=== PATIENT | female | born 1960 | race Caucasian/White ===

== ENCOUNTER 2019-11-03 09:09 | Inpatient (IN) ==
--- NOTE | 2019-11-03 09:35 | EKG Report ---
Test Performed on : 11/03/2019 09:30:04 AM Test Reason : Anemia Blood Pressure : / mmHG Vent. Rate : 073 BPM Atrial Rate : 073 BPM P-R Int : 154 ms QRS Dur : 088 ms QT Int : 408 ms P-R-T Axes : 055 -15 031 degrees QTc Int : 449 ms Normal sinus rhythm. Anteroseptal infarct (cited on or before 18-OCT-2015) Abnormal ECG When compared with ECG of 17-AUG-2019 19:25, (Unconfirmed) No significant change was found Unconfirmed Result
--- NOTE | 2019-11-03 09:57 | PROVIDER DOCUMENTATION ---
HPI-General Adult - General Chief Complaint: Abnormal Lab[s] Stated Complaint: ABNORMAL LAB/LOW HEMOGLOBIN Time Seen by Provider: 11/03/19 09:15 Source: patient Allergies/Adverse Reactions: Patient Allergies Allergy/AdvReac Type Severity Reaction Status Date / Time No Known Allergies Allergy Verified 11/03/19 09:40 Home Medications: Home Medication List Medication Instructions Recorded Confirmed Last Taken Type Amlodipine [Norvasc] 10 mg PO DAILY 11/13/15 11/03/19 11/03/19 History Carvedilol 1 tab PO BID 12/28/17 11/03/19 11/03/19 History Clonidine HCl 1 tab PO BID 12/28/17 11/03/19 11/03/19 History Folic Acid 1 tab PO DAILY 12/28/17 11/03/19 11/03/19 History Furosemide 2 tab PO BID 12/28/17 11/03/19 11/03/19 History Sertraline HCl 1 tab PO DAILY 12/28/17 11/03/19 11/03/19 History Calcium Acetate [Phoslo] 667 mg PO TID CC #20 tab 08/17/19 11/03/19 11/03/19 Rx Famotidine 40 mg PO QAM 11/03/19 11/03/19 11/03/19 History Levothyroxine Sodium 25 mcg PO DAILY 11/03/19 11/03/19 11/03/19 06:00 History 25 mcg Levothyroxine Sodium 300 mcg PO DAILY 11/03/19 11/03/19 11/03/19 06:00 History 300 mcg Nifedipine E.r. [Procardia ER] 60 mg PO DAILY 11/03/19 11/03/19 11/03/19 History - History of Present Illness -Gen Adult Nature of Presenting Problems: Patient is a 59yo F who presents as a referral from Dr. Grady's office. Reports she was called yesterday and notified that her "blood counts" were low and to come to ED for evaluation. States she does daily peritoneal dialysis. Reports over the past few weeks, she has been feeling weak and with lack of energy. Denies blood/dark stools, fever/chills, CP, flu-like symptoms, n/v. Non- toxic in appearance. Location of Pain/Injury: reports: generalized Pain Radiation: reports: no radiation Quality of Pain: reports: none Severity: reports: mild Onset/Duration: reports: other (x "few weeks") Timing: reports: still present Context/Activities at Onset: reports: light activity Modifying Factors: improves with: nothing Associated Symptoms: reports: fatigue, weakness (generalized). denies: back/neck pain, cough, fever/chills, nausea, shortness of breath, vomiting Similar Symptoms Previously?: No Recently seen or treated by another doctor?: Yes (saw Dr. Grady's FLORAL DESIGN TEACHER this week) Review of Systems - Adult - REVIEW OF SYSTEMS - ADULT Constitutional: reports: other (generalized weakness). denies: chills, fever Eyes: reports: no symptoms reported Ears, Nose, Mouth & Throat: denies: ear pain, throat pain Cardiovascular: denies: chest pain, palpitations Respiratory: denies: cough, shortness of breath Gastrointestinal: denies: abdominal pain, vomiting Genitourinary: reports: no symptoms reported Musculoskeletal: reports: no symptoms reported Integumentary: reports: no symptoms reported Neurological: denies: dizziness/vertigo, loss of balance Psychiatric: reports: no symptoms reported Endocrine: reports: no symptoms reported Past History - Adult - PAST MEDICAL HISTORY-ADULT Review of Records: reports: Nursing Assessment Review, Medications Reviewed, Social history reviewed & non-contributory. Major Childhood Illnesses: reports: denies history Cardiovascular: reports: HTN Respiratory: reports: denies history Gastrointestinal: reports: denies history Obstetrical/Gynecological: reports: denies history Genitourinary: reports: kidney disease (CKD) Musculoskeletal: reports: denies history Neurological: reports: denies history Endocrine/Immune: reports: thyroid disorder (Hypo) Other Conditions: reports: denies history - PRIOR SURGERIES/PROCEDURES Surgical/Procedure History: reports: BTL, other (dialysis port placed) - PRIOR HOSPITALIZATIONS Prior Hospitalizations: reports: for other non-related - IMMUNIZATION STATUS Childhood Immunizations: See Nurse Assessment Flu Vaccine: See Nurse Assessment - FAMILY HISTORY Family History: reviewed, not pertinent - SOCIAL HISTORY Smoking: denies, non-smoker Physical Exam-General - PHYSICAL EXAM-ADULT Initial Vital Signs Reviewed: Yes - CONSTITUTIONAL General Appearance: alert, mild distress. negative: lethargic, slow to respond - EYES Eyes: PERRL/EOMI, pale conjunctivae - HEAD, EARS, NOSE, MOUTH & THROAT HENMT: normocephalic/atraumatic. negative: angioedema - NECK Neck: non-tender, full range of motion, supple, normal inspection - RESPIRATORY Respiratory: chest non-tender, lungs clear, normal breath sounds, no pleuratic chest pain, no respiratory distress, no accessory muscle use. negative: crackles, wheezing, retractions - CARDIOVASCULAR Cardiovascular: regular rate, rhythm, no gallop - GASTROINTESTINAL (ABDOMEN) Abdominal Exam: normal bowel sounds, soft - GENITOURINARY Female Genitalia/Pelvic Exam: deferred Rectal Exam: normal exam, normal rectal tone Hemoccult Exam: heme negative stool - MUSCULOSKELETAL Back Exam: normal inspection Extremity: normal range of motion, non-tender, normal gait, normal inspection - SKIN Integumentary: warm/dry, pallor - NEUROLOGIC Neurologic: grossly normal. negative: aphasia, EOM palsy - PSYCHIATRIC Psych/Mental Status: normal mood/affect, normal thought content, normal thought process, oriented x 3 Progress - PLAN OF CARE/RESULTS Progress/Plan/Lab Results: Vital Signs - 8 hr 11/03/19 09:11 Temperature 98.0 F Pulse Rate 78 Respiratory Rate 16 Blood Pressure 146/59 O2 Sat by Pulse Oximetry 97 Orders Category Date Time Status Nursing- Obtain EKG ONCE Care 11/03/19 09:16 Active Saline Loc NOW Care 11/03/19 09:16 Active CBC WITH ELECTRONIC DIFF [HEME] Stat Lab 11/03/19 09:16 Uncollected COMPREHENSIVE METABOLIC PANEL [CHEM] Stat Lab 11/03/19 09:16 Uncollected MAGNESIUM [CHEM] Stat Lab 11/03/19 09:16 Uncollected PHOSPHORUS [CHEM] Stat Lab 11/03/19 09:16 Uncollected EKG [EKG] Stat Ther 11/03/19 09:16 Draft 1000: Dr. Monroy at bedside. 1050: Hospitalist paged for admission. Lab results, imaging results, plan of care, and need for admission discussed with patient who agrees with and verbalizes understanding. Result Diagrams: 11/03/19 09:50 11/03/19 09:50 - EKG 1 Time of EKG reading by physician:: 09:33 EKG Read and Signed by:: Joshua Monroy Rate: 73 Rhythm: NSR Partridge: normal QRS: normal ID Interval: normal Prior EKG Comparison: unchanged from prior (08/17/19) - XRAY 1 XRAY: Bilateral XRAY Study: Chest Impression: See EMR Report ([facility] - [address], [address], [place] [address] [facility] - [address] , [place] [address] Department of Imaging Patient: JUAN CARLOS BRYSON EADM Date: 11/03/19MR#: [id number] : 1960DM Status: REG [facility]#: [id number] Age/Sex: 59/FRoom/Bed: Loc: ED Ordering Physician: Maria Victoria Sepulveda Family Physician: Bryson Wheat MD Reason for Procedure: Weakness; fatigue Signed EXAM: CHEST-PORTABLE HISTORY: Weakness; fatigue TECHNIQUE: Single view COMPARISON: 12/30/2017 FINDINGS: The lungs are well expanded. The heart is borderline mildly prominent. The vessels are not distended. There are no infiltrates. No effusion identified. IMPRESSION: Stable chest Electronically signed by Gopal Ray 11/03/2019 10:27 AM 11/03/19 1027 Interpreting Physician: Gopal Ray MD Dictated Date/Time: 11/03/19 1027 cc: Maria Victoria Sepulveda; Bryson Wheat MD) - CONSULTS/PCP/HOSPITALIST Notification #1 *Consult/PCP/Hospitalist*: Radha Alvarez Time Discussed: 10:53 Reason/Comments: Symptomatic anema; Hyperphosphatemia; ESRD on PD Consult Disposition: Will see in ED, Admit Departure - Departure Date of Disposition Decision: 11/03/19 Time of Disposition Decision: 10:50 DIAGNOSIS: ESRD on peritoneal dialysis, Symptomatic anemia, Hyperphosphatemia Disposition: ADMITTED INPATIENT 09 Certified Medical Emergency: Emergent Condition: Stable - Critical Care Note This patient required my direct & personal management of CC.: No Attestation - Physician/ NIKKI Attestation Patient care was provided by Advanced Practice Provider:: Yes Advanced Practice Provider:: Maria Victoria Sepulveda Advanced Practice Provider documentation review:: The Mid-level provider do cumentation, treatment plan and medical decision making was reviewed by the physician who agrees with all treatment and medical decision making by the MLP. The physician spent face to face time with patient:: Yes (Porfirio) Advanced Practice Provider documentation review:: Supervising physician onsite and consulted in the evaluation and care of this patient. The physician did have a face to face encounter with the patient.
--- NOTE | 2019-11-03 10:30 | Diag Imaging Result Doc PS360 ---
EXAM: CHEST-PORTABLE HISTORY: Weakness; fatigue TECHNIQUE: Single view COMPARISON: 12/30/2017 FINDINGS: The lungs are well expanded. The heart is borderline mildly prominent. The vessels are not distended. There are no infiltrates. No effusion identified. IMPRESSION: Stable chest Electronically signed by Gopal Ray 11/03/2019 10:27 AM
[2019-11-03 10:31] LABS: INR 1.09; PROTIME 14.2 Seconds (11.0-16.0)
[2019-11-03 10:41] LABS: ALB/GLOB RATIO 1.4; ALBUMIN 3.3 g/dL (3.5-5.0); CALCIUM 9.4 mg/dL (8.8-10.2); CREATININE 8.2 mg/dL (0.5-0.9); MAGNESIUM 1.9 mg/dL (1.5-2.7); PHOSPHORUS 5.9 mg/dL (2.7-4.5); POTASSIUM 4.3 mmol/L (3.5-5.1); TOTAL BILIRUBIN 0.31 mg/dL (0.20-1.00); TOTAL PROTEIN 5.6 g/dL (6.3-8.3)
[2019-11-03 10:47] LABS: BASO# 0.02 X1000 (0.0-0.2); BASO% 0.2 % (0.0-0.8); EOS# 0.22 X1000 (0.0-0.7); EOS% 2.2 % (0.0-10.0); HEMOGLOBIN 6.3 g/dL (12.0-16.0); IMM GRAN# 0.05 X1000 (0.0-0.04); IMM GRAN% 0.5 % (0.0-0.5); LYMPH# 1.29 X1000 (1.2-3.4); MCH 29.3 PG (27-31); MCV 97.7 FL (81-99); MONO# 0.74 X1000 (0.11-0.59); MONO% 7.5 % (1.7-9.3); MPV 10.9 FL (7.4-10.4); NEUT# 7.57 X1000 (1.4-6.5); NEUT% 76.6 % (42.2-75.2); PLT 200 X1000 (130-400); RBC 2.15 XMIL (4.2-5.4); RDW 13.8 % (11.5-14.5); WBC 9.89 X1000 (4.8-10.8)
[2019-11-03] MEDS ORDERED: NS 500 ML IV ONE (10:48)
[2019-11-03 10:57] LABS: PTT HEPARIN PROTOCOL 31.8 Seconds
[2019-11-03 11:33] LABS: IRON SATURATION 42 %; TIBC 168 ug/dL; TOTAL IRON 71 ug/dL (49-151); UNBOUND IRON 97 ug/dL (112-346)
[2019-11-03] MEDS ORDERED: ZOFRAN IV PRN (13:16)
[2019-11-03] MEDS ORDERED: TYLENOL PO PRN (13:16)
[2019-11-03] MEDS: PHOSLO PO SCH ×2 (14:15→17:40)
[2019-11-03] MEDS: SODIUM CHLORIDE 0.9% INJ SCH (14:15)
[2019-11-03] MEDS: PROTONIX IV SCH (14:15)
--- NOTE | 2019-11-03 14:26 | HISTORY AND PHYSICAL ---
PRIMARY CARE PROVIDER: Bryson Wheat. CABINET ABRASIVE SANDBLASTER: Dr. Grady. CHIEF COMPLAINT: Was told to come to the ED because of her low blood counts. HISTORY OF PRESENT ILLNESS: Ms. Irby is a 59-year-old female with end-stage renal disease on peritoneal dialysis with Dr. Grady, hypertension, anemia of chronic disease, and hypothyroidism. She reports getting a call to come to the ED secondary to low blood counts. She reports she feels good except when she is up walking around, she gets fatigued in her legs. She has had occasional palpitations but none over the last few days. Maybe some shortness of breath associated with walking a long distance. This has been ongoing per her report for a few weeks now. She denied any bright red blood or dark tarry stools. No coughing up or vomiting up of blood. No dizziness. No syncope. No fever. No chills. No sick contacts. She does report that she usually has a cough in the mornings, that is normal for her, where she is able to produce some phlegm but no more than her normal. No nausea, vomiting, diarrhea, or constipation. No chest pain. No shortness of breath except for walking with long distances. Workup in the ED revealed a hemoglobin and hematocrit of 6 and 21. A BUN of 62, a creatinine of 8.2. She will be admitted, typed and screened, transfused with 2 units of blood, and a GI consult per Dr. Grady's request. Her Hemoccult stool was negative. PAST MEDICAL HISTORY: Per HPI. PAST SURGICAL HISTORY: PD catheter placement in 2019, she had rods placed in a right arm, 2 sections. SOCIAL HISTORY: No tobacco, alcohol, or illicit drug use. Lives with family. 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 HOME MEDICATIONS: Being compiled. REVIEW OF SYSTEMS: Completely negative except for those mentioned in the HPI. PHYSICAL EXAMINATION: VITAL SIGNS: Temperature is 98.1 degrees, heart rate 81, respirations 20, blood pressure 178/61, O2 is 97% on room air. GENERAL: Ms. Irby is a pleasant, 59-year-old, female who is lying on the stretcher in no acute distress. HEENT: Atraumatic, normocephalic. PERRL. NECK: Supple. Trachea midline. CV: S1-S2 appreciated. RESPIRATORY: Lung sounds clear. No rales, rhonchi, or wheezes. No use of accessory muscles. ABDOMEN: Soft, nontender, nondistended. Positive bowel sounds. SKIN: Warm and dry. NEUROLOGIC: No focal deficits noted. DIAGNOSTIC DATA: Chest x-ray stable. EKG, normal sinus rhythm at 73 beats per minute. LABORATORY DATA: White count 9, hemoglobin and hematocrit are 6 and 21, platelet count is 200,000. Sodium 138, potassium 4.3, BUN 62, creatinine 8.2, blood glucose is 117, magnesium is 1.9, phosphorus is 5.9. ASSESSMENT AND PLAN: 1. Symptomatic anemia. We will rule out gastrointestinal bleed. Her Hemoccult stool was negative. She denies vomiting or coughing up any coffee-grounds emesis or bright red blood. We will consult gastroenterology, Dr. Smart. We will give her 2 doses of intravenous Protonix. She has been typed and screened, and will be given 2 units of blood, as well as do a full anemia workup. She does report getting fatigued in her legs when walking, as well as shortness of breath with long distances. 2. End-stage renal disease, on peritoneal dialysis. We will consult Dr. Grady for further orders. 3. Hypertension. 4. Hypothyroidism. 5. Further recommendation to follow physician evaluation, laboratory and diagnostic data. Dictated by HOUSTON Kennedy for Sharad Chawla MD cc: Sharad Chawla MD [facility]
--- NOTE | 2019-11-03 16:59 | HISTORY AND PHYSICAL ---
ADDENDUM: I have seen and examined Ms. Irby today. Ms. Irby is a 59-year-old female who has end-stage renal disease, on peritoneal dialysis, came to the emergency room after she was called by her shank scourer's office that her lab works are remarkably abnormal and that she needed to come to the emergency room. Upon presenting to the emergency room, she was found to have hemoglobin of 6.3. She has been admitted for further medical evaluation and treatment. Ms. Irby has a history of adult polycystic kidney disease. She said she had EGD and colonoscopy done last year by Dr. Marin. She also said lately she has been feeling dizzy and generalized fatigue. OBJECTIVE: Vital signs: Blood pressure is 173/52, pulse of 78, respiration is 16, temperature 98.1 degrees. General: Ms. Irby 59-year-old female she is in bed in no distress. Mucosa is slightly pale. Anicteric. Acyanotic. Neck: Supple. Chest: Good air entry bilateral. Cardiovascular: Regular rate and rhythm. There is a 2/6 murmur radiating to the neck. Abdomen: Soft. There is peritoneal dialysis catheter in place. No peritoneal reaction. Extremities: No pedal edema. DELIVERY AGENT: Patient is awake, alert, and oriented. LABORATORY DATA: Has been reviewed. Hemoglobin of 6.2. Iron studies unremarkable. ASSESSMENT: 1. Symptomatic anemia. 2. Anemia of chronic disease, most likely related to end-stage renal disease. The patient occult testing is negative. She says she was she had EGD and colonoscopy about a year now with Dr. Marin, so we will try and get reports from her GI doctor's office. 3. Endstage renal disease, on peritoneal dialysis. Nephrology has been consulted. 4. History of adult polycystic kidney disease. 5. Uncontrolled hypertension. The patient has been started back on her home medicines. Please refer to the details of the history and physical that has been dictated by the SENIOR FACILITIES MANAGER in the chart. cc: Sharad Chawla MD MTDD
--- NOTE | 2019-11-03 19:44 | NEPHROLOGY CONSULTATION ---
DATE: 11/03/2019 REASON FOR CONSULTATION: Assistance with medical management, ESRD, anemia. HISTORY OF PRESENT ILLNESS: Ms. Irby is a 59-year-old white female who is well known to us. 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 She has hypertension, hypothyroidism, etc. She has a baseline hemoglobin of 9 to 10 and on her routine outpatient laboratory data her hemoglobin was approximately 6.5. No nausea, vomiting, diarrhea, abdominal pain, dark stool, blood in her bowels, known bleeding, tender joints, falls, etc. No recent changes in her medication. Fluid balance has been better than average for her. She does have significant weakness and shortness of breath with activity. PAST MEDICAL HISTORY: As above. HOME MEDICATIONS: Include amlodipine, sertraline, furosemide, folate, clonidine, carvedilol, calcium acetate, nifedipine, levothyroxine, famotidine. ALLERGIES: None. SOCIAL HISTORY: She is and lives alone. No alcohol or tobacco. She works at [employer]. FAMILY HISTORY: Noncontributory. REVIEW OF SYSTEMS: Noncontributory. PHYSICAL EXAMINATION: Vital Signs: Blood pressure 173/52, heart rate 78, respirations 16, afebrile. Generally: She is a healthy woman lying in bed. No distress. Skin: Somewhat pale, but dry. No bruises. HEENT: Conjunctivae are pink. Pupils are equal. Oropharynx is clear. Normal tongue. Normal teeth. Neck: Supple. Trachea is midline. Neck vein distention is not present. Heart: PMI nondisplaced. Regular rate and rhythm. No murmurs, rubs, or gallops. Lungs: Have equal breath sounds. No crackles or wheezes. Abdomen: Soft, distended, nontender. Bowel sounds are present. No organomegaly, masses, bruits. Extremities: Trace edema. No clubbing or cyanosis. Neurologic: Nonfocal. IMPRESSION: Anemia. No obvious blood loss. Other cell lines are unaffected. We will transfuse 2 units packed red blood cells. Check stool for Hemoccult and consider Gastroenterology evaluation. Observe following transfusion. Continue home medications. Continue home dialysis prescription. She is currently dwelling. cc: Mati Grady MD
[2019-11-03] MEDS: CATAPRES PO SCH (20:01)
[2019-11-03] MEDS: COREG PO SCH (20:02)
[2019-11-04] MEDS: PROTONIX IV SCH (01:54)
[2019-11-04 06:18] LABS: BASO# 0.01 X1000 (0.0-0.2); BASO% 0.1 % (0.0-0.8); EOS# 0.17 X1000 (0.0-0.7); EOS% 2.3 % (0.0-10.0); HEMOGLOBIN 8.1 g/dL (12.0-16.0); IMM GRAN# 0.04 X1000 (0.0-0.04); IMM GRAN% 0.5 % (0.0-0.5); LYMPH# 1.22 X1000 (1.2-3.4); LYMPH% 16.2 % (20.5-51.1); MCH 29.1 PG (27-31); MCHC 31.2 g/dL (33-37); MCV 93.5 FL (81-99); MONO# 0.57 X1000 (0.11-0.59); MONO% 7.6 % (1.7-9.3); MPV 10.3 FL (7.4-10.4); NEUT# 5.51 X1000 (1.4-6.5); NEUT% 73.3 % (42.2-75.2); PLT 179 X1000 (130-400); RBC 2.78 XMIL (4.2-5.4); RDW 15.5 % (11.5-14.5); WBC 7.52 X1000 (4.8-10.8)
[2019-11-04 06:32] LABS: ALB/GLOB RATIO 1.6; ALBUMIN 3.1 g/dL (3.5-5.0); CALCIUM 9.2 mg/dL (8.8-10.2); CREATININE 8.7 mg/dL (0.5-0.9); MAGNESIUM 1.9 mg/dL (1.5-2.7); POTASSIUM 3.9 mmol/L (3.5-5.1); TOTAL BILIRUBIN 0.3 mg/dL (0.20-1.00)
[2019-11-04] MEDS: SYNTHROID PO SCH (06:34)
[2019-11-04] MEDS ORDERED: SYNTHROID PO SCH (07:00)
[2019-11-04] MEDS: PHOSLO PO SCH ×3 (07:59→16:42)
[2019-11-04] MEDS: ADALAT CC PO SCH (08:00)
[2019-11-04] MEDS: COREG PO SCH ×2 (08:01→21:28)
[2019-11-04] MEDS: CATAPRES PO SCH ×2 (08:01→21:28)
[2019-11-04] MEDS: NORVASC PO SCH (08:02)
[2019-11-04] MEDS: FOLIC ACID PO SCH (08:02)
[2019-11-04] MEDS: PEPCID PO SCH (08:03)
[2019-11-04] MEDS: ZOLOFT PO SCH (08:03)
[2019-11-04] MEDS ORDERED: COZAAR PO SCH (09:00)
[2019-11-04] MEDS ORDERED: RETACRIT (ESRD PATIENTS) SUBQ ONE (11:37)
--- NOTE | 2019-11-04 12:07 | NEPHROLOGY PROGRESS NOTE ---
DATE: 11/04/2019 SUBJECTIVE: She states she is doing well, and she has been up out of bed. She has only recently gotten back into the bed. Still no nausea vomiting, or abdominal pain. No melena or hematochezia etc. OBJECTIVE: Vital Signs: Blood pressure 182/64, heart rate 76, and afebrile. General: No acute distress. Skin: Warm and dry. Less pale. HEENT: Conjunctivae are pink. Neck: Neck veins are not distended. Heart: Regular. No gallops. Lungs: Equal. No crackles. Abdomen: Soft and nontender. Bowel sounds present. Extremities: Trace edema. No clubbing or cyanosis. IMPRESSION: 1. Anemia. Hemoglobin 8.1 following transfusion. The inpatient evaluation is in process. We will check her hemoglobin again in the morning. If stable, then I would advocate for discharge and further workup performed as an outpatient. She does receive Mircera which is a long-acting erythropoiesis stimulating agent, but I will give an extra dose of erythropoietin while she is here. 2. CKD 5D. We will continue her routine dialysis prescription. 3. Hypertension. Blood pressure is significantly elevated. I will increase her losartan to 100 mg daily. cc: Mati Grady MD
[2019-11-04 15:04] LABS: HEMATOCRIT 26.7 % (37.0-47.0); HEMOGLOBIN 8.4 g/dL (12.0-16.0)
--- NOTE | 2019-11-04 15:28 | PROGRESS NOTE ---
DATE: 11/04/2019 SUBJECTIVE: I have seen and examined Ms. Irby this morning. Ms. Irby refers to be doing well. She says she tolerated her dialysis well last night and that she has been up to the restroom and she did not have any more dizziness. Ms Irby is status post 2 PRBC transfusion yesterday. This morning, her hemoglobin is up to 8.1. Nephrology has already evaluated her and she refers that she was told to be monitored till tomorrow. OBJECTIVELY: Vital signs: Her current vitals, blood pressure of 182/64, pulse of 76, respiration is 14, temperature is 97.6 degrees. General: Ms. Irby is a 59-year-old female. She is in bed, no distress. HEENT: Mucosa is pink and moist. Anicteric. Acyanotic. Neck: Supple. Chest: Clear to auscultation. There were no crepitations, no rhonchi. Cardiovascular: Regular rate and rhythm. There is a 2/6 murmur radiating to the neck. Gastrointestinal: Abdomen is soft. Peritoneal dialysis catheter is in place. No peritoneal reaction. Extremities: No pedal edema. Central nervous system: Patient is awake, alert, oriented. There is no focal deficit. LABORATORY DATA: 1. Hemoglobin is up to 8.1. Chemistry is consistent with renal failure. 2. The patient's TSH is 0.10, which is remarkably low. ASSESSMENT: 1. Symptomatic anemia. Patient is status post 2 packed red blood cells transfusion. The patient is also pending Gastroenterology evaluation. Dr. Smart has been consulted. 2. Anemia of chronic disease, most likely related to end-stage renal disease. 3. End-stage renal disease on peritoneal dialysis. Nephrology is on board. 4. History of adult polycystic kidney disease. 5. Uncontrolled hypertension. We have made some changes to her current medications. Losartan has been increased to 100 daily today. 6. History of hypothyroidism with low TSH consistent of chemical hyperthyroidism, medication- induced. We are going to cut back on the levothyroxine dose. PLAN: In general, I think Ms. Irby is fairly stable. She has 2 units transfused. She does not feel any more symptoms. She is pending GI evaluation today. As per Nephrology documentation, they prefer to recheck on her hemoglobin and hematocrit later today, make sure it is stable. If it is, then she will potentially be discharged and follow up as an outpatient. cc: Sharad Chawla MD
--- NOTE | 2019-11-04 16:40 | GASTROENTEROLOGY CONSULTATION ---
DATE: 11/04/2019 REASON FOR CONSULT: GI bleed/anemia. HISTORY OF PRESENT ILLNESS: Ms. Irby is a 59-year-old, female with a history of end- stage renal disease on peritoneal dialysis. The patient is being followed by Dr. Grady. She mentioned that Dr. Grady had asked her to come to the hospital because her hemoglobin and hematocrit were low. The patient does have a history of hypertension, anemia of chronic disease, hypothyroidism. The patient has denied any flu-like symptoms like shortness of breath, fever, or chills, dizziness and syncope. She did have some nausea and vomiting but currently she is not having any and she has denied noticing any blood in her emesis. The patient has regular bowel movements. She has denied noticing any blood in her stools or dark tarry stools. The patient is on peritoneal dialysis and she does it at at home. The patient mentioned that she does see Dr. Marin, her GI doctor at [place], and she did have an EGD and colonoscopy done in 2018. She remembers having some polyps, hiatal hernia, and diverticulosis. The patient's hemoglobin and hematocrit on admission were 6.3 and 21.0. Today, they are 8.1 and 26.0. She has so far received 2 units of blood. The patient's stool for occult blood was negative. Her chest x-ray on admission was showing stable chest. PAST MEDICAL HISTORY: End-stage renal disease on peritoneal dialysis, hypertension, hypothyroidism, anemia of chronic disease, sliding hiatal hernia, diverticulosis coli, melanosis coli and polyps. PAST SURGICAL HISTORY: A peritoneal catheter placement in 2019, rods placed in the right arm, and 2 sections. SOCIAL HISTORY: The patient lives with her daughter. She has 2 kids. She has denied any alcohol, tobacco, or illicit drug use. 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 ALLERGIES: No known drug allergies. FAMILY HISTORY: No significant GI malignancies. MEDICATIONS: Home medications are amlodipine 10 mg p.o. daily, sertraline 50 mg 1 tablet daily, Lasix 80 mg 2 tablets twice a day, folic acid 1 mg 1 tablet daily, clonidine 0.1 mg 1 tablet twice a day, carvedilol 25 mg 1 tablet twice a day, calcium acetate 667 mg 3 times a day, Procardia 60 mg p.o. daily, levothyroxine 300 mcg p.o. daily, famotidine 40 mg p.o. daily. REVIEW OF SYSTEMS: As per HPI. Otherwise, 12 point review of system is negative. PHYSICAL EXAMINATION: Vital Signs: Temperature 97.6 degrees, pulse 76, respirations 14, blood pressure 182/64, oxygen saturation 96% on room air. Patient's weight is 189 pounds. BMI is 32.5 kg/m2. General: She is alert, oriented x3, and in no acute distress. HEENT: Pale conjunctivae. No icterus. PERRL. Neck: Supple. Lungs: Clear to auscultation. Cardiovascular: Regular rate and rhythm. Abdomen: Obese. Has a peritoneal dialysis catheter. Active bowel sounds heard in all 4 quadrants. Extremities: No clubbing, no cyanosis, no edema. Pedal pulses 2+ present bilaterally. Neurologic: Alert and oriented x3. Nonfocal. Cranial nerves 2-12 grossly intact. LABS: WBCs are 7.52, RBCs 2.78, hemoglobin 8.5, hematocrit is 26.0, platelet count is 179,000. Sodium 145, potassium 3.9, chloride 99, carbon dioxide 29, anion gap 17, BUN 59, creatinine 8.7, glucose 96, calcium 9.2, magnesium is 1.9. Total bilirubin is 0.30, AST 9, ALT 11, alkaline phosphatase 54, albumin is 3.1. IMAGING: Chest x-ray yesterday showed stable chest. IMPRESSION: - Anemia of chronic disease - ESRD - HTN - Diverticulosis - Hiatal hernia - History of colonic polyps PLAN: Ms. Irby is 59-year-old, female who has a history of end-stage renal disease, on peritoneal dialysis. GI has been consulted for her anemia. The patient's hemoglobin and hematocrit today are 8.1 and 26.0. The patient has so far received 2 units of blood. She has denied noticing any bleeding episodes. The patient mentioned having an EGD and colonoscopy done at [place] by Dr. Marin. We have received the records from his office. Patient had an EGD and colonoscopy on 02/28/2018, she had heme positive stool, premalignant colon polyp, small sliding hiatal hernia, mild diffused diverticulosis coli and mild diffused melanosis coli. We plan to do an EGD tomorrow to find out the cause of her anemia. Discussed the risks, benefits and alternatives of the procedure to the patient. Further plan of care will be based on the EGD findings. We will continue to monitor her hemoglobin and hematocrit, and follow the plan of care per PCP. This plan was discussed with Dr. Smart. Thank you for your consult. Please call us for any further questions or concerns. Dictated by HOUSTON Barajas for Ricardo Smart MD Physician Attestation I have seen and examined the patient. I have discussed and reviewed the note by Chichi CONRAD and agree with findings and plan as documented. FOBT negative. She is not iron deficient. No overt bleeding. Will plan for diagnostic EGD tomorrow. If negative, then will consider repeat outpatient colonoscopy. Continue EPO per Renal. MTDD
[2019-11-05] MEDS: SYNTHROID PO SCH (06:48)
[2019-11-05 08:12] LABS: HEMATOCRIT 27.9 % (37.0-47.0)
[2019-11-05] MEDS: CATAPRES PO SCH (08:21)
[2019-11-05] MEDS: COREG PO SCH (08:21)
[2019-11-05] MEDS: NORVASC PO SCH (08:21)
[2019-11-05] MEDS: ADALAT CC PO SCH (08:21)
[2019-11-05] MEDS: PEPCID PO SCH (08:23)
[2019-11-05] MEDS: FOLIC ACID PO SCH ×2 (08:23→11:34)
[2019-11-05] MEDS: PHOSLO PO SCH ×3 (08:23→16:48)
[2019-11-05] MEDS: ZOLOFT PO SCH ×2 (08:24→11:34)
[2019-11-05] MEDS ORDERED: COZAAR PO SCH (09:00)
[2019-11-05] MEDS ORDERED: DIPRIVAN 1% ONE (09:33)
[2019-11-05] MEDS ORDERED: XYLOCAINE-MPF 2% ONE (09:33)
--- NOTE | 2019-11-05 10:45 | ENDOSCOPY OPERATIVE NOTE ---
[facility] ENDOSCOPY OPERATIVE NOTE , EGD PROCEDURE REPORT EXAM DATE: 11/05/2019 PATIENT NAME: Rosa Irby MR#: [id number] BIRTHDATE: 1960 ATTENDING: Kj Degroot MD STATUS: inpatient IMPREGNATOR AND DRIER: Kimberly Avendano INDICATIONS: The patient is a 59 yr old female here for an EGD due to Anemia, required 2 units PRBCs , ESRD on PD. PROCEDURE PERFORMED: EGD, diagnostic MEDICATIONS: Per Anesthesia ESTIMATED BLOOD LOSS: None CONSENT: The patient understands the risks and benefits of the procedure and understands that these r isks include, but are not limited to: sedation, allergic reaction, infection, perforation and/or bleeding. Alternative means of evaluation and treatment include, among others: physical exam, x-rays, and/or surgical intervention. The patient elects to proceed with this endoscopic procedure. DESCRIPTION OF PROCEDURE: During pre-op preparation period all mechanical and medical equipment was c hecked for proper function. Hand hygiene and appropriate measures for infection prevention was taken. After the risks, benefits and alternatives of the procedure were thoroughly explained, Informed consent was verified, confirmed and timeout was successfully executed by the treatment team. The patient was anesthetized with topical anesthesia and the [id number] ([id number]) endoscope was introduced through the mouth and advanced to the second portion of the duoden um. Retroflexion was performed in the stomach and revealed a hiatal hernia and Retroflexion was performed in the stoma ch and revealed . The gastroscope was then slowly withdrawn and removed. The patient's toleration of the procedure was good. ESOPHAGUS: Reflux esophagitis was found in the mid esophagus and distal esophagus. Esophagitis was L A Class B: One or more mucosal breaks > 5mm, but without continuity across mucosal folds. A 2 cm hiatal hernia was no karlos. Irregular Z line was noted at 42 cms. STOMACH: Mild gastritis (inflammation) was found in the gastric body. DUODENUM: Mild duodenal inflammation was found in the duodenal bulb. The duodenal mucosa showed no abnormalities in the 2nd part of the duodenum. ADVERSE EVENTS: There were no complications. IMPRESSIONS: 1. Reflux esophagitis in the mid esophagus and distal esophagus 2. 2 cm hiatal hernia 3. Gastritis (inflammation) was found in the gastric body 4. Duodenal inflammation was found in the duodenal bulb 5. The duodenal mucosa showed no abnormalities in the 2nd part of the duodenum RECOMMENDATIONS: 1. Start PPI once daily for 3 months GERD lifestyle changes, Start MVI QD for 90 days. Avoid NSAIDs 2. Begin an anti-reflux lifestyle: avoid acidic foods and drinks (like coffee and soda), do not lie down three hours after eating, elevate the head of your bed 6 to 9 inches, stop smokiing and reduce weight if needed. REPEAT EXAM: Kj Degroot MD eSigned: Kj Degroot MD 11/05/2019 10:44 AM CC: CPT CODES: 66005 Upper gastrointestinal endoscopy including esophagus, stomach, and either the du odenum and/or jejunum as appropriate; diagnostic, with or without collection of specimen(s) by brushing or washing (separate procedure) ICD CODES: The ICD and CPT codes recommended by this software are interpretations from the data that the [facility] staff has captured with the software. The verification of the translation of this report to the ICD and CPT co tanesha and modifiers is the sole responsibility of the health care institution and practicing physician where this report was generated. [employer] will not be held responsible for the validity of the ICD and CPT codes i ncluded on this report. AMA assumes no liability for data contained or not contained herein. CPT is a registered tra demark of the [employer]. PATIENT NAME: Rosa Irby MR#: [id number]
[2019-11-05 10:58] VITALS: BP 167/62
[2019-11-05] MEDS ORDERED: PROTONIX IV SCH (11:15)
[2019-11-05] MEDS ORDERED: SODIUM CHLORIDE 0.9% INJ SCH (11:15)
[2019-11-05] MEDS: SODIUM CHLORIDE 0.9% INJ SCH (11:34)
--- NOTE | 2019-11-05 12:46 | NEPHROLOGY PROGRESS NOTE ---
DATE: 11/05/2019 SUBJECTIVE: She underwent endoscopy today. No sources for bleeding were discovered. She feels well. She has been ambulatory without difficulty. OBJECTIVE: Vital Signs: Blood pressure 167/62, heart rate 68, respirations 20, afebrile. General: No acute distress. Skin: Warm and dry. Neck: Neck veins are not distended. Heart: Regular. No gallops. Lungs: Equal. No crackles. Abdomen: Soft, nontender. Normal bowel sounds. Extremities: No edema, clubbing or cyanosis. IMPRESSION AND PLAN: Anemia. Hemoglobin is significantly improved following transfusion. Iron studies did not necessitate IV iron. B12 was marginally low at 279. This should be repleted. GI evaluation can be completed as an outpatient. cc: Mati Grady MD
--- NOTE | 2019-11-05 20:04 | DISCHARGE SUMMARY ---
ADMISSION DATE: 11/03/2019 DISCHARGE DATE: 11/05/2019 DISPOSITION: Home. FOLLOWUP: 1. Mati Grady MD. 2. Kj Degroot MD. 3. Chanda. Chaparro Wheat MD. CONSULTATION DURING THIS ADMISSION: 1. GI was consulted, patient was seen by Dr. Smart and followed up by Dr. Degroot. 2. Nephrology was consulted, patient was seen by Dr. Grady. INVASIVE PROCEDURES DONE DURING THIS ADMISSION: EGD was done by Dr. Degroot which only showed reflux esophagitis and mild gastritis. The duodenal mucosa was normal. ADMISSION DIAGNOSES: 1. Symptomatic anemia. 2. End-stage renal disease. 3. Hypertension. 4. Hypothyroidism. DIAGNOSES AT THE TIME OF DISCHARGE: 1. Symptomatic anemia on presentation. Patient is status post 2 packed red blood cells transfusions. Hemoglobin and hematocrit are stable. 2. Anemia of chronic disease, most likely related to end-stage renal disease. Esophagogastroduodenoscopy has been unremarkable. 3. End-stage renal disease, on hemodialysis. 4. History of adult polycystic kidney disease. 5. Uncontrolled hypertension. 6. Hypothyroidism. 7. Drug-induced hyperthyroidism (iatrogenic). PRESENTING COMPLAINT: Low blood count. Patient was advised to come to the emergency room. HISTORY OF PRESENTING COMPLAINT: Ms. Irby is a 59-year-old, female who has end-stage renal disease, chronic anemia, hypothyroidism, went to see her interactive developer. She did some laboratory data a week before and she was called to be notified that her hemoglobin was remarkably low and that she needed to come to the emergency room. Upon presenting to the emergency room, she was found to have a hemoglobin of 6.3. She was group and crossmatch and transfused 2 PRBCs. Subsequently, she started feeling better. No more dizziness, no more fatigue. GI was consulted, patient was seen by Dr. Smart. EGD was subsequently done which did not show any major abnormalities except for some gastritis and reflux esophagitis. The patient has been placed on PPI and we think she is stable enough to go home. Ms. Irby was also found to have remarkably low TSH. She has been on 325 of Synthroid. We will discontinue the 25 and advised that she take only in the 300, repeat her TSH in 2 weeks, and let her primary care make changes accordingly. Ms. [place] was also given Epogen injection by Nephrology and losartan was added to her blood pressure medications for better blood pressure control. At the time of the discharge, her blood pressure was 167/62, pulse of 68, respirations 20, temperature 98.0 degrees. She remains completely asymptomatic. She is stable for discharge. The time spent for discharge is 35 minutes. cc: Sharad Chawla MD MTDD
[2019-11-06] MEDS ORDERED: NEPHRO-VITE PO SCH (09:00)
== END 2019-11-05 17:12 | disposition home or self-care (01) | DRG 682 ==
LOC: ED 09:09 → 2N 11:32 → 3N 11-04 17:22
PROVIDERS: ATTEND Internal Medicine